=== PATIENT | male | born 1960 | race Hispanic/Latino ===

== ENCOUNTER 2017-06-09 11:11 | Day surgery (SDC) | payer BC ==
[~2017-06-09] VITALS: Ht 172.7 cm; Wt 89.8 kg
[~2017-06-09 11:11] MED LIST: ATIVAN0.5 MG PO; DILAUDID 2MG2 MG/TA1 PO; FLEXERIL PO; LIORESAL10 MG/TA1 PO; LIPITOR20 M1 PO; NAPROSYN500 MG PO; TYLENOL # 31 TA1 PO; VALTREX500 MG PO; ZOVIRAX51 EX
[2017-06-09 14:07] VITALS: BP 116/68
== END 2017-06-09 14:15 | disposition home or self-care (01) | DRG 951 ==
LOC: ENDO 11:11
PROVIDERS: ATTEND Internal Medicine Gastroenterology
PROC: 0DBN8ZX Excision of Sigmoid Colon, Via Natural or Artificial Opening Endoscopic, Diagnostic (ICD-10-PCS; principal; 2017-06-09)
DX: Z12.11 Encounter for screening for malignant neoplasm of colon (principal); K63.5 Polyp of colon; E78.00 Pure hypercholesterolemia, unspecified; K64.4 Residual hemorrhoidal skin tags; K64.8 Other hemorrhoids; Z85.72 Personal history of non-Hodgkin lymphomas

== ENCOUNTER 2020-07-03 03:54 | Emergency (ER) | payer BC ==
[~2020-07-03] VITALS: Ht 170.2 cm; Wt 92.0 kg
[~2020-07-03 03:54] MED LIST changes: -LIPITOR20 M1 PO; +LIPITOR80 M1 PO
[2020-07-03 05:07] LABS: HEMATOCRIT 40.6 % (39.0-50.0); HEMOGLOBIN 13.5 g/dl (14.0-18.0); IMMATURE GRANULOCYTES 0.2 % (0.0-5.0); MEAN CORPUSCULAR HGB 32.9 pG CALC (26.0-32.0); MEAN CORPUSCULAR HGB CONC 33.3 g/dL CAL (32.0-36.0); NEUT# 2.8 thou/uL (1.82-7.42); RED BLOOD COUNT 4.1 mill/uL (4.70-6.10); RED CELL DISTRI WIDTH 13.1 % (11.5-15.5)
[2020-07-03 05:19] LABS: ALBUMIN 4.2 g/dL (3.2-5.0); ALKALINE PHOSPHATASE 70 u/l (38-126); ANION GAP 11 (6-22 (CALC)); BILIRUBIN, TOTAL 1.3 mg/dL (0.0-1.4); BUN 11 mg/dL (9-20); BUN/CREATININE RATIO 15 (12-20 (CALC)); CARBON DIOXIDE 31 mmol/l (22-30); CHLORIDE 103 mmol/l (95-108); CREATININE 0.7 mg/dL (0.7-1.3); GFR > 60 ML/MIN (>=60 (CALC)); GFR FOR AFR.AMER. > 60 ML/MIN (>=60 (CALC)); POTASSIUM 3.9 mmol/l (3.5-5.1); SGOT/AST 32 u/l (17-59); SODIUM 141 mmol/l (137-146)
[2020-07-03 07:02] VITALS: BP 136/74
== END 2020-07-03 07:06 | disposition home or self-care (01) | DRG 153 ==
LOC: ED 03:54
PROVIDERS: Emergency Medicine
DX: J02.9 Acute pharyngitis, unspecified (principal); Z85.038 Personal history of other malignant neoplasm of large intestine
CPT/HCPCS: Q9967

== ENCOUNTER 2021-09-29 22:44 | Emergency (ER) | payer BC ==
[~2021-09-29] VITALS: Ht 170.2 cm; Wt 93.0 kg
[2021-09-29 23:01] VITALS: BP 165/94
[2021-09-29 23:20] LABS: HEMATOCRIT 42.2 % (39.0-50.0); HEMOGLOBIN 14.3 g/dl (14.0-18.0); IMMATURE GRANULOCYTES 0.2 % (0.0-5.0); MEAN CELL VOLUME 98.8 fL CALC (80.0-100.0); MEAN CORPUSCULAR HGB 33.5 pG CALC (26.0-32.0); MEAN CORPUSCULAR HGB CONC 33.9 g/dL CAL (32.0-36.0); NEUT# 1.89 thou/uL (1.82-7.42); RED BLOOD COUNT 4.27 mill/uL (4.70-6.10); RED CELL DISTRI WIDTH 12.9 % (11.5-15.5)
[2021-09-29 23:24] LABS: URINE BILIRUBIN - DIPSTICK NEGATIVE (NEGATIVE); URINE BLOOD DIPSTICK NEGATIVE (NEGATIVE); URINE COLOR YELLOW; URINE GLUCOSE - DIPSTICK NEGATIVE (NEGATIVE); URINE KETONE NEGATIVE (NEGATIVE); URINE LEUK ESTERASE NEGATIVE (NEGATIVE); URINE NITRITE - DIPSTICK NEGATIVE (Negative); URINE PH 5.5 (4.5-8.0); URINE PROTEIN - DIPSTICK NEGATIVE (NEG-TRACE); URINE SPECIFIC GRAVITY 1.025
[2021-09-29 23:37] LABS: ALBUMIN 4.3 g/dL (3.2-5.0); ALKALINE PHOSPHATASE 83 u/l (38-126); ANION GAP 11 (6-22 (CALC)); BUN 14 mg/dL (8-23); BUN/CREATININE RATIO 16 (12-20 (CALC)); CARBON DIOXIDE 26 mmol/l (22-30); CHLORIDE 107 mmol/l (95-108); CREATININE 0.9 mg/dL (0.7-1.3); GFR FOR AFR.AMER. > 60 ML/MIN (>=60 (CALC)); GFR OTHER RACES > 60 ML/MIN (>=60 (CALC)); POTASSIUM 3.9 mmol/l (3.5-5.1); SGOT/AST 54 u/l (19-48); SODIUM 141 mmol/l (137-146); TOTAL PROTEIN 7.4 g/dL (6.3-8.2)
[2021-09-30 00:10] VITALS: BP 165/94
== END 2021-09-30 00:25 | disposition home or self-care (01) | DRG 392 ==
LOC: ED 22:44
PROVIDERS: Family Medicine
DX: K59.00 Constipation, unspecified (principal); R58 Hemorrhage, not elsewhere classified